=== PATIENT | female | born 1975 | race Two or more races ===

== ENCOUNTER 2024-03-17 20:22 | Emergency (ER) | payer MEDICAID, OTHER ==
[~2024-03-17] VITALS: Ht 170.2 cm; Wt 86.7 kg
[2024-03-17] MEDS: IOHEXOL 350 MG/ML 100ML IJ ONE (21:35)
[2024-03-17 21:58] LABS: Urine Bacteria FEW /hpf (None Seen); Urine Blood 1+ /uL (Negative); Urine Clarity Turbid (Clear); Urine Color Light-Yellow (Yellow); Urine Mucus FEW (None Seen); Urine Protein, UAD Negative (Negative); Urine Specific Gravity 1.024 (1.001-1.035); Urine Urobilinogen Normal (Negative); Urine WBC 11 /hpf (0 - 5); Urine pH 5.5 (5.0-9.0)
[2024-03-17 22:01] LABS: Basophils # (auto) 0 10 ^3/uL (0-0.2); Basophils % (auto) 0.4 % (0.0-2.0); Eosinophils # (auto) 0 10 ^3/uL (0-0.8); Eosinophils % (auto) 0.5 % (0.0-7.0); Hematocrit 38.4 % (36.0-46.0); Hemoglobin 13.3 g/dL (12.2-16.2); Lymphocytes # (auto) 2.8 10 ^3/uL (0.4-5.4); Lymphocytes % (auto) 39.8 % (10.0-50.0); Mean Corpuscular Hgb Conc. 34.6 g/dL (32.0-36.0); Mean Corpuscular Volume 86.6 fL (80.0-100.0); Monocytes # (auto) 0.4 10 ^3/uL (0-1.3); Neutrophils # (auto) 3.8 10 ^3/uL (1.6-8.6); Neutrophils % (auto) 54.3 % (37.0-80.0); Nucleated Red Blood Cells % 0.2 %; Red Blood Cells 4.43 10^6/uL (4.0-5.20); Red Cell Distribution Width 13.8 % (11.8-14.3)
[2024-03-17] MEDS: ACETAMINOPHEN 325 MG TAB PO ONE (22:02)
[2024-03-17] MEDS: METOCLOPRAMIDE HCL 5MG/ml INJ 2ml VIAL IV ONE (22:03)
[2024-03-17 22:12] LABS: Chloride 109 mmol/L (98-107); Potassium 3.7 mmol/L (3.5-5.1); Sodium 142 mmol/L (136-145)
[2024-03-17] MEDS: SODIUM CHLORIDE 0.9% 1,000 ML IV ONE (22:12)
[2024-03-17 22:13] LABS: Anion Gap 6 (5-15); Carbon Dioxide 27 mmol/L (20-30)
[2024-03-17 22:14] LABS: Calcium 9.6 mg/dL (8.7-10.4)
[2024-03-17 22:17] VITALS: TEMP 98
[2024-03-17 22:18] LABS: Glucose 90 mg/dL (74-106)
[2024-03-17 22:19] LABS: BUN/Creatinine Ratio 12.8 (10.0-20.0); Blood Urea Nitrogen 14 mg/dL (9-23)
[2024-03-18] MEDS: KETOROLAC TROMETH 30 MG/ML 1ML VIAL IV ONE (01:14)
[2024-03-18 01:15] VITALS: BP 168/80
[2024-03-18 01:16] VITALS: PULSE 46; RESP 16; O2SAT 99
== END 2024-03-18 02:57 | disposition home or self-care (01) ==
LOC: ER 20:22
DX: R42 Dizziness and giddiness (principal); I10 Essential (primary) hypertension; G43.909 Migraine, unspecified, not intractable, without status migrainosus
CPT/HCPCS: 36415; 70450; 80048; 81001; 84484; 85025; 93005; 96360; 99284; J7030